=== PATIENT | female | born 1975 | race Caucasian/White ===

== ENCOUNTER 2017-10-21 04:37 | Inpatient (IN) | payer MEDICAID ==
[~2017-10-21] VITALS: Ht 162.6 cm; Wt 80.0 kg
[~2017-10-21 04:37] MED LIST: HYDR-3240 PO
[2017-10-21 04:58] VITALS: BP 127/81
[2017-10-21] MEDS ORDERED: FENTANYL PF 100 MCG/2ML ONE ×4 (06:09→14:14)
[2017-10-21] MEDS ORDERED: FENTANYL PF 100 MCG/2ML IV PRN (06:30)
[2017-10-21] MEDS: FENTANYL PF 100 MCG/2ML IVPush PRN ×4 (06:30→14:16)
[2017-10-21] MEDS ORDERED: SODIUM CITRATE/CITRIC ACID 30 ML UDC PO PRN (06:30)
[2017-10-21] MEDS: LACTATED RINGERS 1,000 ML IV SCH ×5 (06:30→23:39)
[2017-10-21] MEDS ORDERED: OXYTOCIN 30U/ 0.9% NaCL 500ML 500 ML IV ONE (06:30)
[2017-10-21] MEDS ORDERED: METOCLOPRAMIDE 5 MG/ML, 2ML IVPush PRN (06:30)
[2017-10-21 07:05] LABS: MEAN CORPUSCULAR HEMOGLOBIN 29.2 pg (27.0-34.8); MEAN CORPUSCULAR HGB CONC 33.3 g/dL (32.4-35.8); MEAN CORPUSCULAR VOLUME 87.7 fL (80-100); MEAN PLATELET VOLUME 7.4 fL (7.4-10.4); PLATELET COUNT 241 x10^3/uL (130-400); RED BLOOD COUNT 4.18 x10^6/uL (3.82-5.3); RED CELL DISTRIBUTION WIDTH 14.1 % (9.6-15.2)
[2017-10-21] MEDS ORDERED: NEWBORN KIT ONE (07:22)
[2017-10-21] MEDS ORDERED: LIDOCAINE 1%, 20ML ONE (07:22)
[2017-10-21] MEDS ORDERED: MISOPROSTOL 200 MCG TABLET ONE (07:23)
[2017-10-21] MEDS ORDERED: OXYTOCIN 30U/ 0.9% NaCL 500ML 500 ML ONE (07:23)
[2017-10-21 07:42] LABS: BASOPHILS # (AUTO) 0.04 x10^3/uL (0-0.1); BASOPHILS % (AUTO) 0 % (0-1); EOSINOPHILS # (AUTO) 0.09 x10^3/uL (0-0.4); EOSINOPHILS % (AUTO) 1 % (1-7); LYMPHOCYTES # (AUTO) 1.92 x10^3/uL (1-3.4); LYMPHOCYTES % (AUTO) 14 % (22-44); MD SCAN; MONOCYTES # (AUTO) 0.52 x10^3/uL (0.2-0.8); MONOCYTES % (AUTO) 4 % (2-9); NEUTROPHILS # (AUTO) 10.86 x10^3/uL (1.8-6.8); NEUTROPHILS % (AUTO) 81 % (42-75)
[2017-10-21] MEDS: D5%-LACTATED RINGERS 1,000 ML IV SCH ×3 (12:08→22:30)
[2017-10-21] MEDS ORDERED: ONDANSETRON 2MG/ML, 2ML ONE ×2 (14:20→22:21)
[2017-10-21] MEDS: ONDANSETRON 2MG/ML, 2ML IVPush PRN ×2 (14:21→22:25)
[2017-10-21] MEDS ORDERED: FENTANYL/BUPIV./NS/PF 250 ML EPIDCONT ONE (15:06)
[2017-10-21] MEDS ORDERED: BUPIVACAINE/PF 0.25% ONE (15:06)
[2017-10-21] MEDS ORDERED: FENTANYL/BUPIV./NS/PF 250 ML EPIDCONT SCH (15:39)
[2017-10-21] MEDS ORDERED: ONDANSETRON 2MG/ML, 2ML IVPush PRN (16:00)
[2017-10-21] MEDS ORDERED: EPHEDRINE 50 MG/ML, 1ML IVPush PRN (16:00)
[2017-10-21] MEDS ORDERED: LACTATED RINGERS 1,000 ML IVBOLUS PRN (16:00)
[2017-10-21] MEDS ORDERED: NALOXONE 0.4 MG/ML, 1ML IVPush PRN (16:00)
[2017-10-21] MEDS ORDERED: DIPHENHYDRAMINE 50 MG/ML, 1ML IVPush PRN (16:00)
[2017-10-21] MEDS ORDERED: CALCIUM CARBONATE 500 MG TAB.CHEW ONE (18:59)
[2017-10-21] MEDS ORDERED: CALCIUM CARBONATE 500 MG TAB.CHEW PO PRN (19:00)
[2017-10-21] MEDS ORDERED: BUPIVACAINE 0.25% ONE (22:17)
[2017-10-22] MEDS: LACTATED RINGERS 1,000 ML IV SCH ×8 (02:24→21:59)
[2017-10-22] MEDS ORDERED: METOCLOPRAMIDE 5 MG/ML, 2ML ONE (04:00)
[2017-10-22] MEDS ORDERED: SODIUM CITRATE/CITRIC ACID 30 ML UDC ONE (04:00)
[2017-10-22] MEDS ORDERED: LIDOCAINE/MPF 2%-EPI 1:200K, 20 ML INFIL ONE (04:30)
[2017-10-22] MEDS ORDERED: morphine SULFATE/PF 0.5 MG/ML, 10ML ONE (04:34)
[2017-10-22] MEDS ORDERED: DEXAMETHASONE 4 MG/ML, 1ML ONE (04:36)
[2017-10-22] MEDS ORDERED: ONDANSETRON 2MG/ML, 2ML ONE (04:36)
[2017-10-22] MEDS ORDERED: OXYTOCIN 10 UNITS/ML, 1ML ONE (04:36)
[2017-10-22] MEDS ORDERED: KETOROLAC 30 MG/1 ML ONE (04:36)
[2017-10-22] MEDS ORDERED: CEFAZOLIN 1,000 MG ONE (04:37)
[2017-10-22] MEDS ORDERED: MIDAZOLAM 1 MG/ML, 2ML ONE (04:49)
[2017-10-22] MEDS ORDERED: EPHEDRINE 50 MG/ML, 1ML ONE (05:48)
[2017-10-22] MEDS ORDERED: MEPERIDINE/PF 100 MG/ML ONE (05:50)
[2017-10-22] MEDS: OXYTOCIN 30U/ 0.9% NaCL 500ML 500 ML IV SCH ×2 (05:59→16:00)
[2017-10-22] MEDS ORDERED: METHYLERGONOVINE 0.2 MG/ML IM PRN (06:00)
[2017-10-22] MEDS ORDERED: ACETAMINOPHEN 325 MG TABLET PO PRN (06:00)
[2017-10-22] MEDS ORDERED: CALCIUM CARBONATE 500 MG TAB.CHEW PO PRN (06:00)
[2017-10-22] MEDS ORDERED: ONDANSETRON 2MG/ML, 2ML IV PRN (06:00)
[2017-10-22] MEDS ORDERED: OXYcodone/APAP 5/325MG TABLET PO PRN (06:00)
[2017-10-22] MEDS ORDERED: MEPERIDINE/PF 25MG/0.5ML IVPush PRN (06:30)
[2017-10-22] MEDS ORDERED: EPHEDRINE 50 MG/ML, 1ML IVPush ONE (06:30)
[2017-10-22] MEDS: D5%-LACTATED RINGERS 1,000 ML IV SCH (06:30)
[2017-10-22 08:55] VITALS: BP 106/67
[2017-10-22] MEDS: PRENATAL VIT/IRON/FA 1 EACH TABLET PO SCH (09:00)
[2017-10-22] MEDS: OXYcodone/APAP 5/325MG TABLET PO PRN ×2 (10:57→15:06)
[2017-10-22] MEDS ORDERED: NALOXONE 0.4 MG/ML, 1ML IV PRN ×2 (11:00→11:30)
[2017-10-22] MEDS ORDERED: NO SEDATIVES, TRANQUILIZERS OR ANTIEMETICS XX SCH (11:00)
[2017-10-22] MEDS ORDERED: ONDANSETRON 2MG/ML, 2ML IVPush PRN (11:00)
[2017-10-22] MEDS ORDERED: morphine SULFATE 10 MG/ML, 1ML IVPush PRN (11:00)
[2017-10-22] MEDS ORDERED: EPHEDRINE 50 MG/ML, 1ML IVPush PRN (11:00)
[2017-10-22] MEDS: KETOROLAC 30 MG/1 ML IVPush SCH ×3 (11:48→23:29)
[2017-10-22 12:10] VITALS: BP 106/64
[2017-10-22 13:05] LABS: BASOPHILS # (AUTO) 0.07 x10^3/uL (0-0.1); BASOPHILS % (AUTO) 1 % (0-1); EOSINOPHILS # (AUTO) 0.02 x10^3/uL (0-0.4); EOSINOPHILS % (AUTO) 0 % (1-7); LYMPHOCYTES # (AUTO) 1.21 x10^3/uL (1-3.4); LYMPHOCYTES % (AUTO) 8 % (22-44); MD NO; MEAN CORPUSCULAR HEMOGLOBIN 29.2 pg (27.0-34.8); MEAN CORPUSCULAR HGB CONC 33.2 g/dL (32.4-35.8); MEAN CORPUSCULAR VOLUME 88.1 fL (80-100); MONOCYTES # (AUTO) 0.74 x10^3/uL (0.2-0.8); MONOCYTES % (AUTO) 5 % (2-9); NEUTROPHILS # (AUTO) 13.17 x10^3/uL (1.8-6.8); NEUTROPHILS % (AUTO) 87 % (42-75); PLATELET COUNT 225 x10^3/uL (130-400); RED BLOOD COUNT 3.24 x10^6/uL (3.82-5.3); RED CELL DISTRIBUTION WIDTH 14.8 % (9.6-15.2)
[2017-10-22 16:10] VITALS: BP 113/69
[2017-10-22 20:15] VITALS: BP 103/68
[2017-10-22] MEDS: DOCUSATE 100 MG CAPSULE PO PRN (23:29)
[2017-10-22 23:30] VITALS: BP 103/66
[2017-10-23] MEDS: LACTATED RINGERS 1,000 ML IV SCH ×3 (01:59→11:59)
[2017-10-23] MEDS: OXYTOCIN 30U/ 0.9% NaCL 500ML 500 ML IV SCH ×2 (01:59→11:59)
[2017-10-23] MEDS: IBUPROFEN 800 MG TABLET PO PRN ×3 (06:30→22:15)
[2017-10-23 07:43] VITALS: BP 120/76
[2017-10-23] MEDS: DOCUSATE 100 MG CAPSULE PO PRN ×2 (08:25→20:10)
[2017-10-23] MEDS: PRENATAL VIT/IRON/FA 1 EACH TABLET PO SCH (08:25)
[2017-10-23] MEDS: OXYcodone/APAP 5/325MG TABLET PO PRN ×3 (10:33→22:15)
[2017-10-23] MEDS ORDERED: DIPHENHYDRAMINE 25 MG CAPSULE PO PRN (13:30)
[2017-10-23 19:45] VITALS: BP 138/88
[2017-10-24] MEDS: DOCUSATE 100 MG CAPSULE PO PRN ×2 (07:19→22:38)
[2017-10-24] MEDS: IBUPROFEN 800 MG TABLET PO PRN ×2 (07:19→18:25)
[2017-10-24] MEDS: OXYcodone/APAP 5/325MG TABLET PO PRN ×4 (07:20→22:38)
[2017-10-24] MEDS: PRENATAL VIT/IRON/FA 1 EACH TABLET PO SCH (07:20)
[2017-10-24 07:48] VITALS: BP 117/71
[2017-10-24 20:45] VITALS: BP 132/93
[2017-10-24 22:30] VITALS: BP 125/84
[2017-10-25] MEDS: OXYcodone/APAP 5/325MG TABLET PO PRN ×3 (04:03→16:54)
[2017-10-25] MEDS: IBUPROFEN 800 MG TABLET PO PRN ×2 (04:03→12:54)
[2017-10-25 08:09] VITALS: BP 110/73
[2017-10-25] MEDS ORDERED: OXYC-302 PO (08:25)
[2017-10-25] MEDS ORDERED: IBUP-1223 PO (08:25)
[2017-10-25] MEDS ORDERED: FERR325T17 PO (08:26)
[2017-10-25] MEDS ORDERED: SENN1TAB35 PO (08:27)
[2017-10-25] MEDS: DOCUSATE 100 MG CAPSULE PO PRN (08:35)
[2017-10-25] MEDS: PRENATAL VIT/IRON/FA 1 EACH TABLET PO SCH (08:35)
== END 2017-10-25 17:10 | disposition home or self-care (01) | DRG 766 ==
LOC: LDOP 04:37 → LDIP 06:13 → 2NW 10-22 08:43
PROVIDERS: ADMIT Obstetrics & Gynecology; ATTEND Obstetrics & Gynecology
PROC: 10D00Z1 Extraction of Products of Conception, Low, Open Approach (ICD-10-PCS; principal; 2017-10-22)
DX: O77.0 Labor and delivery complicated by meconium in amniotic fluid (principal); O62.0 Primary inadequate contractions; Z37.0 Single live birth; Z3A.40 40 weeks gestation of pregnancy
CPT/HCPCS: 36415; 85025; 86850; 86900; 89060; J0690; J1100; J1885; J2175; J2250; J2274; J2405; J3010; J2590; J2765; J7120; J7121; Q0114; Q0163